=== PATIENT | male | born 1985 | race Native Hawaiian/Other Pacific Islander ===

== ENCOUNTER 2017-10-02 16:10 | Emergency (ER) | payer SELFPAY ==
[2017-10-02 16:48] VITALS: BP 122/78
--- NOTE | 2017-10-02 18:07 | Emergency Department Report ---
Chief Complaint: Chest Pain Stated Complaint: CHEST PAIN Time Seen by Provider: 10/02/17 17:54 - HPI History of Present Illness: 32-year-old male presents to the emergency department with complaint of some left-sided chest pain. He also feels it in the neck. He says that he has a anxious and very nervous sensation as well. Overall the patient has been dealing with some chest pains for about 9 months. He has been evaluated at a hospital in the past and was told that everything tested appropriately and he was discharged on ibuprofen. He came back today because he was feeling like he might pass out and says "it changed." He does not have a primary care physician. He denies any alcohol or illicit drug use or abuse. He did not take anything for her symptoms today prior to presentation. - ROS Review of Systems: Positive for chest pain, neck pain, near syncope Negative for shortness of breath, fever, nausea, vomiting or diaphoresis. - Exam Vital Signs: Vital Signs 10/02/17 16:27 Temperature 99.1 F Pulse Rate 63 Respiratory 16 Rate Blood Pressure 122/78 O2 Sat by Pulse 98 Oximetry Physical Exam: Heart and lungs sounds are normal to auscultation. He is awake and alert in no acute distress. Cranial nerves intact. MSE screening note: Focused history and physical exam performed. Due to findings the following was ordered: EKG does not show any ST elevation [place] or dysrhythmia. I have ordered a CBC, BMP, troponin, d-dimer and a 2 view chest x-ray. ED Disposition for MSE Condition: Stable
[2017-10-02 18:35] LABS: Basophils % (Auto) 0.4 % (0.0-1.8); Eosinophils # (Auto) 0.1 K/mm3 (0.0-0.4); Lymphocytes # (Auto) 2.6 K/mm3 (1.2-5.4); Lymphocytes % (Auto) 30.5 % (13.4-35.0); Mean Corpuscular HGB Conc 36 % (32-34); Mean Corpuscular Hemoglobin 32 pg (28-32); Mean Corpuscular Volume 89 fl (84-94); Monocytes # (Auto) 0.5 K/mm3 (0.0-0.8); Monocytes % (Auto) 6.5 % (0.0-7.3); Platelet Count 222 K/mm3 (140-440); Red Blood Count 4.76 M/mm3 (3.65-5.03); Red Cell Distribution Width 13.1 % (13.2-15.2)
[2017-10-02 18:39] LABS: Hematocrit 42.4 % (35.5-45.6); Hemoglobin 15.2 gm/dl (11.8-15.2)
[2017-10-02 18:52] LABS: BUN/Creatinine Ratio 21; Blood Urea Nitrogen 17 mg/dL (9-20); Calcium 9.2 mg/dL (8.4-10.2); Hemolysis Index 13
--- NOTE | 2017-10-02 19:58 | XRay Report ---
FINAL REPORT EXAM: XR CHEST ROUTINE 2V HISTORY: Chest Pain TECHNIQUE: Two view chest PA and lateral PRIORS: None. FINDINGS: Cardiac and mediastinal contours are unremarkable. No focal pulmonary infiltrate is identified. No pleural fluid collection seen. Pulmonary vasculature is unremarkable. IMPRESSION: Negative two-view chest
--- NOTE | 2017-10-02 20:18 | Emergency Department Report ---
ED Chest Pain HPI - General Chief Complaint: Chest Pain Stated Complaint: CHEST PAIN Time Seen by Provider: 10/02/17 17:54 Source: patient Mode of arrival: Ambulatory Limitations: Language Barrier - History of Present Illness Initial Comments: Patient 32-year-old instruction inatermittent left lateral chest pain 5/10 max with periods of anxiety for the last year patient works as a construction lineman hanging [employer] denies fall injury or trauma patient denies shortness of breath or wheezing no history of bronchitis pain does exacerbate feelings of anxiety current chest pain is 210 left chest radiating to left neck there is no numbness no tingling no nausea vomiting no dizziness no lightheadedness patient not on medications for anxiety at this time no history of [facility] none noted at this time. MD Complaint: chest pain Onset/Timin -: year(s) Onset: during rest, during exertion Pain Location: left chest Pain Radiation: neck Severity: moderate Severity scale (0 -10): 5 Quality: sharp Consistency: intermittent Improves With: nothing Worsens With: movement, other (stress anxiety ) re: denies: nausea, vomting, diaphoresis, dyspnea, sense of impending doom Other Symptoms: denies: cough, fever, syncope, rash, acid taste in mouth, leg swelling, palpitations, burping, other Treatments Prior to Arrival: none Aspirin use within the Past 7 Days: (0) No - Related Data Previous Rx's Medication Instructions Recorded Last Taken Type hydrOXYzine HCL [Atarax] 25 mg PO Q6HR PRN #30 tablet 10/02/17 Unknown Rx Allergies Allergy/AdvReac Type Severity Reaction Status Date / Time No Known Allergies Allergy Unverified 10/02/17 16:48 Heart Score - HEART Score History: Slightly suspicious EKG: Normal Age: < 45 Risk factors: No known risk factors Troponin: < normal limit HEART Score: 0 ED Review of Systems ROS: Stated complaint: CHEST PAIN Other details as noted in HPI Constitutional: denies: chills, fever Eyes: denies: eye pain, eye discharge, vision change ENT: denies: ear pain, throat pain Respiratory: denies: cough, shortness of breath, wheezing Cardiovascular: chest pain. denies: palpitations, dyspnea on exertion, orthopnea, edema, syncope, paroxysmal nocturnal dyspnea Endocrine: no symptoms reported Gastrointestinal: denies: abdominal pain, nausea, vomiting, diarrhea Genitourinary: denies: urgency, dysuria Musculoskeletal: denies: back pain, joint swelling, arthralgia Skin: denies: rash, lesions Neurological: denies: headache, weakness, paresthesias Psychiatric: anxiety Hematological/Lymphatic: denies: easy bleeding, easy bruising ED Past Medical Hx - Past Medical History Previous Medical History?: No - Surgical History Past Surgical History?: No - Social History Smoking Status: Current Every Day Smoker Substance Use Type: None - Medications Home Medications: Home Medications Medication Instructions Recorded Confirmed Last Taken Type hydrOXYzine HCL [Atarax] 25 mg PO Q6HR PRN #30 tablet 10/02/17 Unknown Rx ED Physical Exam - General Limitations: Language Barrier General appearance: alert, in no apparent distress - Head Head exam: Present: atraumatic, normocephalic - Eye Eye exam: Present: normal appearance - ENT ENT exam: Present: mucous membranes moist - Neck Neck exam: Present: normal inspection - Respiratory Respiratory exam: Present: normal lung sounds bilaterally. Absent: respiratory distress, wheezes, rhonchi, chest wall tenderness - Cardiovascular Cardiovascular Exam: Present: regular rate, normal rhythm. Absent: systolic murmur, diastolic murmur, rubs, gallop - GI/Abdominal GI/Abdominal exam: Present: soft, normal bowel sounds. Absent: distended, tenderness, guarding, rebound, rigid, organomegaly, mass, bruit, pulsatile mass , hernia - Rectal Rectal exam: Present: deferred - Extremities Exam Extremities exam: Present: normal inspection - Back Exam Back exam: Present: normal inspection. Absent: full ROM, tenderness, CVA tenderness (R), CVA tenderness (L), muscle spasm, paraspinal tenderness, vertebral tenderness - Neurological Exam Neurological exam: Present: alert, oriented X3, CN II-XII intact, normal gait, reflexes normal. Absent: motor sensory deficit - Psychiatric Psychiatric exam: Present: anxious. Absent: homicidal ideation, suicidal ideation - Skin Skin exam: Present: warm, dry, intact, normal color. Absent: rash ED Course Vital Signs 10/02/17 16:27 Temperature 99.1 F Pulse Rate 63 Respiratory 16 Rate Blood Pressure 122/78 O2 Sat by Pulse 98 Oximetry ANTWAN score - Antwan Score Age > 65: (0) No Aspirin use within the Past 7 Days: (0) No 3 or more CAD Risk Factors: (0) No 2 or more Angina events in past 24 hrs: (0) No Known CAD with more than 50% Stenosis: (0) No Elevated Cardiac Markers: (0) No ST Deviation Greater than 0.5mm: (0) No ANTWAN Score: 0 ED Medical Decision Making - Lab Data Result diagrams: 10/02/17 18:20 10/02/17 18:20 Laboratory Tests 10/02/17 10/02/17 10/02/17 18:20 18:20 18:20 WBC 8.5 RBC 4.76 Hgb 15.2 Hct 42.4 MCV 89 MCH 32 MCHC 36 H RDW 13.1 L Plt Count 222 Lymph % (Auto) 30.5 [place] % (Auto) 6.5 Eos % (Auto) 1.0 Baso % (Auto) 0.4 Lymph # 2.6 [place] # 0.5 Eos # 0.1 Baso # 0.0 Seg Neutrophils % 61.6 Seg Neutrophils # 5.2 D-Dimer < 135.0 Sodium 139 Potassium 4.0 Chloride 98.9 Carbon Dioxide 26 Anion Gap 18 BUN 17 Creatinine 0.8 Estimated GFR > 60 BUN/Creatinine Ratio 21 Glucose 105 H Calcium 9.2 Troponin T < 0.010 - EKG Data EKG shows normal: sinus rhythm Rate: normal - EKG Data 10/02/17 20:22 NSR, NSTEMI, Early repole - Radiology Data Radiology results: report reviewed, image reviewed normal chest xray no infiltrates no opacities - Medical Decision Making EKG normal sinus rhythm and no ST elevated [place] chest x-ray normal no infiltrates no opacities, troponin less than\ < 0.01 negative ,d-dimer less than <135, heart score is 0, ANTWAN score is 0, pt on ibuprofen tid prn chest wall pain, will rx atarax 25 mg po tid prn anxiety will follow up with [facility] 2-3 days pt verbalized agreement and understanding same to home in stable condition pain is improved at this time. Critical care attestation.: If time is entered above; I have spent that time in minutes in the direct care of this critically ill patient, excluding procedure time. ED Disposition Clinical Impression: Chest wall pain, Anxiety Disposition: - TO HOME OR SELFCARE Is pt being admited?: No Does the pt Need Aspirin: No Condition: Good Instructions: Chest Pain (ED), Costochondritis (ED), Anxiety (ED) Prescriptions: hydrOXYzine HCL [Atarax] 25 mg PO Q6HR PRN #30 tablet PRN Reason: Anxiety Referrals: [facility] [Outside] - 3-5 Days Forms: Work/School Release Form(ED) Time of Disposition: 20:28
== END 2017-10-02 21:01 | disposition home or self-care (01) ==
LOC: ED 16:10
DX: F41.9 Anxiety disorder, unspecified (principal); R07.89 Other chest pain; F17.200 Nicotine dependence, unspecified, uncomplicated
CPT/HCPCS: 36415; 71046; 80048; 84484; 85025; 85379; 93005; 93010; 99283